=== PATIENT | male | born 1940 | race American Indian/Alaskan Native ===

== ENCOUNTER 2017-05-24 07:02 | Emergency (ER) | payer MEDICARE, OTHER ==
[2017-05-24] MEDS: OXYCODONE/ACETAMINOPHEN (5/325) TAB PO (09:49)
== END 2017-05-24 10:24 | disposition home or self-care (01) ==
LOC: FTE 07:02
DX: S22.42XA Multiple fractures of ribs, left side, initial encounter for closed fracture (principal); E11.9 Type 2 diabetes mellitus without complications; I10 Essential (primary) hypertension; J45.909 Unspecified asthma, uncomplicated; W06.XXXA Fall from bed, initial encounter; Y92.9 Unspecified place or not applicable
CPT/HCPCS: 71045; 71100; 99283-25